=== PATIENT | female | born 1995 | race Caucasian/White ===

== ENCOUNTER 2021-04-15 18:23 | Emergency (ER) | payer OTHER ==
[2021-04-15 19:58] LABS: RED BLOOD COUNT 4.39 M/UL (4.00-5.10); WHITE BLOOD COUNT 5.4 K/UL (4.5-11.0)
[2021-04-15 20:33] LABS: BUN/CREATININE RATIO 33 (0-10)
== END 2021-04-15 23:00 | disposition home or self-care (01) ==
LOC: ER1 18:23
PROVIDERS: Physician Assistant
DX: O20.9 Hemorrhage in early pregnancy, unspecified (principal); O24.011 Pre-existing type 1 diabetes mellitus, in pregnancy, first trimester; E10.65 Type 1 diabetes mellitus with hyperglycemia; O99.331 Smoking (tobacco) complicating pregnancy, first trimester; F17.200 Nicotine dependence, unspecified, uncomplicated
CPT/HCPCS: 80053; 81001; 82962; 84702; 85025; 86900; 86901; 96374; 99284; J7030

== ENCOUNTER 2021-06-11 05:14 | Emergency (ER) | payer OTHER ==
[2021-06-11] MEDS ORDERED: BENADRYL 25MG C25 MG PO (06:34)
[2021-06-11] MEDS ORDERED: PEPCID AC20 MG PO (06:34)
== END 2021-06-11 07:20 | disposition home or self-care (01) ==
LOC: ER1 05:14
DX: T50.995A Adverse effect of other drugs, medicaments and biological substances, initial encounter (principal); E10.9 Type 1 diabetes mellitus without complications
CPT/HCPCS: 96374; 99283; J1200

== ENCOUNTER 2021-07-19 12:10 | Emergency (ER) | payer OTHER ==
[~2021-07-19 12:10] MED LIST: BENADRYL 25MG C25 MG PO; PEPCID AC20 MG PO
[2021-07-19 13:13] LABS: HEMOGLOBIN 12.7 gm/dl (12.3-15.3); RED BLOOD COUNT 4.12 M/UL (4.00-5.10); WHITE BLOOD COUNT 5.5 K/UL (4.5-11.0)
[2021-07-19 13:39] LABS: BUN/CREATININE RATIO 17 (0-10)
[2021-07-19] MEDS ORDERED: CEPHALEXIN500 M1 PO (15:02)
== END 2021-07-19 15:20 | disposition home or self-care (01) ==
LOC: ER1 12:10
PROVIDERS: Emergency Medicine
DX: E10.9 Type 1 diabetes mellitus without complications (principal); L03.211 Cellulitis of face; L30.9 Dermatitis, unspecified
CPT/HCPCS: 80053; 82009; 82800; 85025; 85652; 86140; 99283